=== PATIENT | male | born 1960 | race Caucasian/White ===

== ENCOUNTER 2017-01-04 19:42 | Observation (INO) | payer BC ==
[2017-01-04 19:44] VITALS: BP 192/104; PULSE 100; RESP 18; TEMP 99; O2SAT 97
[2017-01-04] MEDS ORDERED: SODIUM CHLORIDE 0.9% FLUSH 10 ML FLUSH IVF PRN (20:15)
[2017-01-04] MEDS ORDERED: ASPIRIN 81 MG CHEW TAB PO ONE (20:15)
[2017-01-04] MEDS ORDERED: SODIUM CHLOR 0.9% 1000 ML INJ 1,000 ML IV ONE (20:15)
[2017-01-04 20:16] VITALS: RESP 18; O2SAT 100
[2017-01-04] MEDS: NITROGLYCERIN 0.4 MG SL 25 TABS/BTL SL SCH ×3 (20:16→20:23)
[2017-01-04] MEDS ORDERED: ASPI81TA81 (20:19)
--- NOTE | 2017-01-04 20:23 | PD ---
HPI Chief Complaint: Chest Pain Time Seen by Provider: 19:49 Travel History International Travel<30 days: No Contact w/Intl Traveler<30days: No Traveled to known affect area: No History of Present Illness HPI Patient is a 56-year-old male with no known medical history, presents to emergency room for evaluation of chest pain. Patient reports that for the past few days, he has been feeling uncomfortable sensation to the left side of his chest. Patient reports that sometimes he feels the sensation go down his left leg or up his neck. Patient reports that he does feel short of breath with his symptoms. Patient reports that symptoms improved with ambulation, is worse with just sitting still. Reports concern as he is adopted and does not know his family history. Patient reports that the last time he saw a physician had his cholesterol checked was about 3 years ago in [place], reports that at that time he had a stress test by [facility] and reports that everything was negative. Patient is here for vacation, he lives in [place]. COUNT INCLUDES THE [facility] Past Medical History Medical History: Denies Significant Hx Past Surgical History Surgical History: No Previous Surgery Family History Family History: patient adopted Social History Alcohol Use: No Tobacco Use: No Substance Use: No Allergies-Medications (Allergen,Severity, Reaction): Coded Allergies: No Known Allergies (Unverified , 01/04/17) Reported Meds & Prescriptions Reported Meds & Active Scripts Active Reported Aspir-81 (Aspirin) 81 Mg Tabdr Review of Systems General / Constitutional: No: Fever Eyes: No: Visual changes HENT: No: Headaches Cardiovascular: Positive: Chest Pain or Discomfort Respiratory: Positive: Shortness of Breath Gastrointestinal: No: Abdominal Pain Genitourinary: No: Dysuria Musculoskeletal: No: Pain Skin: No Rash Neurologic: No: Weakness Psychiatric: No: Depression Endocrine: No: Polydipsia Hematologic/Lymphatic: No: Easy Bruising Physical Exam Narrative GENERAL: No acute distress, nontoxic SKIN: Focused skin assessment warm/dry. HEAD: Atraumatic. Normocephalic. EYES: Pupils equal and round. No scleral icterus. No injection or drainage. ENT: No nasal bleeding or discharge. Mucous membranes pink and moist. NECK: Trachea midline. No JVD. CARDIOVASCULAR: Regular rate and rhythm. No murmur appreciated. RESPIRATORY: No accessory muscle use. Clear to auscultation. Breath sounds equal bilaterally. GASTROINTESTINAL: Abdomen soft, non-tender, nondistended. Hepatic and splenic margins not palpable. MUSCULOSKELETAL: No obvious deformities. No clubbing. No cyanosis. No edema. NEUROLOGICAL: Awake and alert. No obvious cranial nerve deficits. Motor grossly within normal limits. Normal speech. PSYCHIATRIC: Appropriate mood and affect; insight and judgment normal. Data Data Last Documented VS Vital Signs Date Time Temp Pulse Resp B/P Pulse Ox O2 Delivery O2 Flow Rate FiO2 01/04/17 20:16 18 100 Nasal Cannula 01/04/17 19:44 99.0 100 192/104 Orders B-Type Natriuretic Peptide (01/04/17 20:04) Ckmb (Isoenzyme) Profile (01/04/17 20:04) Complete Blood Count With Diff (01/04/17 20:04) Comprehensive Metabolic Panel (01/04/17 20:04) D-Dimer (01/04/17 20:04) Magnesium (Mg) (01/04/17 20:04) Prothrombin Time / Inr (Pt) (01/04/17 20:04) Act Partial Throm Time (Ptt) (01/04/17 20:04) Troponin I (01/04/17 20:04) Lipase (01/04/17 20:04) Chest, Single Ap (01/04/17 20:04) Ecg Monitoring (01/04/17 20:04) Iv Access Insert/Monitor (01/04/17 20:04) Oximetry (01/04/17 20:04) Aspirin Chew (Aspirin Chew) (01/04/17 20:15) Sodium Chloride 0.9% Flush (Ns Flush) (01/04/17 20:15) Nitroglycerin Sl (Nitrostat Sl) (01/04/17 20:15) Sodium Chlor 0.9% 1000 Ml Inj (Ns 1000 M (01/04/17 20:15) CKMB (01/04/17 20:10) CKMB% (01/04/17 20:10) Electrocardiogram (01/04/17 19:58) Admit Order (Ed Use Only) (01/04/17 21:59) Labs Laboratory Tests Test 01/04/17 20:10 White Blood Count 8.8 TH/MM3 Red Blood Count 5.14 MIL/MM3 Hemoglobin 15.0 GM/DL Hematocrit 43.3 % Mean Corpuscular Volume 84.3 FL Mean Corpuscular Hemoglobin 29.2 PG Mean Corpuscular Hemoglobin 34.7 % Concent Red Cell Distribution Width 15.0 % Platelet Count 205 TH/MM3 Mean Platelet Volume 9.6 FL Neutrophils (%) (Auto) 58.5 % Lymphocytes (%) (Auto) 31.8 % Monocytes (%) (Auto) 7.9 % Eosinophils (%) (Auto) 1.4 % Basophils (%) (Auto) 0.4 % Neutrophils # (Auto) 5.1 TH/MM3 Lymphocytes # (Auto) 2.8 TH/MM3 Monocytes # (Auto) 0.7 TH/MM3 Eosinophils # (Auto) 0.1 TH/MM3 Basophils # (Auto) 0.0 TH/MM3 CBC Comment DIFF FINAL Differential Comment Prothrombin Time 10.1 SEC Prothromb Time International 0.9 RATIO Ratio Activated Partial 27.3 SEC Thromboplast Time D-Dimer Quantitative (PE/DVT) 0.32 MG/L FEU Sodium Level 138 MEQ/L Potassium Level 4.7 MEQ/L Chloride Level 108 MEQ/L Carbon Dioxide Level 23.6 MEQ/L Anion Gap 6 MEQ/L Blood Urea Nitrogen 12 MG/DL Creatinine 1.02 MG/DL Estimat Glomerular Filtration 76 ML/MIN Rate Random Glucose 77 MG/DL Calcium Level 9.0 MG/DL Magnesium Level 2.0 MG/DL Total Bilirubin 0.8 MG/DL Aspartate Amino Transf 82 U/L (AST/SGOT) Alanine Aminotransferase 64 U/L (ALT/SGPT) Alkaline Phosphatase 56 U/L Total Creatine Kinase 270 U/L Creatine Kinase MB 2.1 NG/ML Troponin I LESS THAN 0.02 NG/ML B-Type Natriuretic Peptide 7 PG/ML Total Protein 7.7 GM/DL Albumin 3.6 GM/DL Lipase 249 U/L [facility] Medical Decision Making Medical Screen Exam Complete: Yes Emergency Medical Condition: Yes Interpretation(s) EKG at 1957: Normal sinus rhythm at 95 bpm, qt/qtc: 335/388, no acute st or t wave changes Vital Signs Date Time Temp Pulse Resp B/P Pulse Ox O2 Delivery O2 Flow Rate FiO2 01/04/17 19:44 99.0 100 18 192/104 97 Room Air Differential Diagnosis ACS, arrhythmia, dissection, PE, electrolyte abnormality Narrative Course 56-year-old male who presents to emergency room with complaints of abnormal sensation to his chest wall. Symptoms have been intermittent for the past 3 days, reports concerns as he has been having radiation of symptoms of his neck and down his leg. Patient was placed on a quality assurance monitor chassis upon arrival to emergency room. EKG was obtained. Plan to obtain lab work including cardiac enzymes as well as x- ray of the chest. Will administer sublingual nitroglycerin to see if this helps this chest pain. Aspirin one 162 mg was administered as well. Vital Signs Date Time Temp Pulse Resp B/P Pulse Ox O2 Delivery O2 Flow Rate FiO2 01/04/17 20:16 18 100 Nasal Cannula 01/04/17 19:44 99.0 100 18 192/104 97 Room Air Laboratory Tests Test 01/04/17 20:10 White Blood Count 8.8 TH/MM3 (4.0-11.0) Red Blood Count 5.14 MIL/MM3 (4.50-5.90) Hemoglobin 15.0 GM/DL (13.0-17.0) Hematocrit 43.3 % (39.0-51.0) Mean Corpuscular Volume 84.3 FL (80.0-100.0) Mean Corpuscular Hemoglobin 29.2 PG (27.0-34.0) Mean Corpuscular Hemoglobin 34.7 % Concent (32.0-36.0) Red Cell Distribution Width 15.0 % (11.6-17.2) Platelet Count 205 TH/MM3 (150-450) Mean Platelet Volume 9.6 FL (7.0-11.0) Neutrophils (%) (Auto) 58.5 % (16.0-70.0) Lymphocytes (%) (Auto) 31.8 % (9.0-44.0) Monocytes (%) (Auto) 7.9 % (0.0-8.0) Eosinophils (%) (Auto) 1.4 % (0.0-4.0) Basophils (%) (Auto) 0.4 % (0.0-2.0) Neutrophils # (Auto) 5.1 TH/MM3 (1.8-7.7) Lymphocytes # (Auto) 2.8 TH/MM3 (1.0-4.8) Monocytes # (Auto) 0.7 TH/MM3 (0-0.9) Eosinophils # (Auto) 0.1 TH/MM3 (0-0.4) Basophils # (Auto) 0.0 TH/MM3 (0-0.2) CBC Comment DIFF FINAL Differential Comment Prothrombin Time 10.1 SEC (9.8-11.6) Prothromb Time International 0.9 RATIO Ratio Activated Partial 27.3 SEC Thromboplast Time (24.3-30.1) D-Dimer Quantitative (PE/DVT) 0.32 MG/L FEU (0.00-0.50) Sodium Level 138 MEQ/L (136-145) Potassium Level 4.7 MEQ/L (3.5-5.1) Chloride Level 108 MEQ/L (98-107) Carbon Dioxide Level 23.6 MEQ/L (21.0-32.0) Anion Gap 6 MEQ/L (5-15) Blood Urea Nitrogen 12 MG/DL (7-18) Creatinine 1.02 MG/DL (0.60-1.30) Estimat Glomerular Filtration 76 ML/MIN (>89) Rate Random Glucose 77 MG/DL (74-106) Calcium Level 9.0 MG/DL (8.5-10.1) Magnesium Level 2.0 MG/DL (1.5-2.5) Total Bilirubin 0.8 MG/DL (0.2-1.0) Aspartate Amino Transf 82 U/L (15-37) (AST/SGOT) Alanine Aminotransferase 64 U/L (12-78) (ALT/SGPT) Alkaline Phosphatase 56 U/L (45-117) Total Creatine Kinase 270 U/L (39-308) Creatine Kinase MB 2.1 NG/ML (0.5-3.6) Troponin I LESS THAN 0.02 NG/ML (0.02-0.05) B-Type Natriuretic Peptide 7 PG/ML (0-100) Total Protein 7.7 GM/DL (6.4-8.2) Albumin 3.6 GM/DL (3.4-5.0) Lipase 249 U/L (73-393) Last Impressions Chest X-Ray 01/04/172003 Signed Impressions: Service Date/Time: , January 04, 2017 20:19 - CONCLUSION: No acute disease. Mil Quarles MD Patient with relief of symptoms after 1 SL nitro. Plan to obs to chest pain unit at this time. Diagnosis Primary Impression: Chest pain Admitting Information Admitting Physician Requests: Observation Diane Arreguin DO Jan 04, 2017 20:23
[2017-01-04 20:32] LABS: AUTOMATED NEUTROPHIL # 5.1 TH/MM3 (1.8-7.7); BASOPHIL % 0.4 % (0.0-2.0); EOSINOPHIL # 0.1 TH/MM3 (0-0.4); EOSINOPHIL % 1.4 % (0.0-4.0); HEMATOCRIT 43.3 % (39.0-51.0); HEMO FLAGS DIFF FINAL; LYMPH % 31.8 % (9.0-44.0); LYMPHOCYTE # 2.8 TH/MM3 (1.0-4.8); MEAN CELL VOLUME 84.3 FL (80.0-100.0); MEAN CORPUSCULAR HEMOGLOBIN 29.2 PG (27.0-34.0); MEAN CORPUSCULAR HGB CONC 34.7 % (32.0-36.0); MONO % 7.9 % (0.0-8.0); NEUT % 58.5 % (16.0-70.0); PLATELET COUNT 205 TH/MM3 (150-450); RED BLOOD COUNT 5.14 MIL/MM3 (4.50-5.90); WHITE BLOOD COUNT 8.8 TH/MM3 (4.0-11.0)
[2017-01-04 20:46] LABS: ALT (GPT) 64 U/L (12-78)
[2017-01-04 20:47] LABS: APTT (PATIENT) 27.3 SEC (24.3-30.1); INTERNATIONAL NORMALIZED RATIO 0.9 RATIO; PROTHROMBIN TIME - PATIENT 10.1 SEC (9.8-11.6)
--- NOTE | 2017-01-04 20:48 | RADRPT ---
EXAM DATE/TIME: 01/04/2017 20:19 [place] COMPARISON: No previous studies available for comparison. INDICATIONS : Chest pain MEDICAL HISTORY : Hypertension. SURGICAL HISTORY : None. ENCOUNTER: Initial ACUITY: 1 day PAIN SCORE: 5/10 LOCATION: Bilateral chest FINDINGS: A single view of the chest demonstrates the lungs to be symmetrically aerated without evidence of mas s, infiltrate or effusion. The cardiomediastinal contours are unremarkable. Osseous structures are intact. There are overlying electrocardiogram leads. CONCLUSION: No acute disease. Mil Quarles MD on January 04, 2017 at 20:46 Board Certified Radiologist. This report was verified electronically.
[2017-01-04 20:54] LABS: ALKALINE PHOSPHATASE 56 U/L (45-117); ANION GAP 6 MEQ/L (5-15); AST (GOT) 82 U/L (15-37); BICARBONATE 23.6 MEQ/L (21.0-32.0); BLOOD UREA NITROGEN 12 MG/DL (7-18); CHLORIDE 108 MEQ/L (98-107); CREATINE KINASE 270 U/L (39-308); GLOMERULAR FILTRATION RATE 76 ML/MIN (>89); SODIUM (NA) 138 MEQ/L (136-145); TOTAL BILIRUBIN ADULT 0.8 MG/DL (0.2-1.0)
[2017-01-04 20:56] LABS: POTASSIUM 4.7 MEQ/L (3.5-5.1)
[2017-01-04 21:09] LABS: CKMB 2.1 NG/ML (0.5-3.6)
[2017-01-04 22:57] VITALS: BP 150/70; PULSE 74; RESP 18; O2SAT 98
[2017-01-04 23:47] LABS: CREATINE KINASE 175 U/L (39-308)
[2017-01-04 23:59] LABS: CKMB 1.6 NG/ML (0.5-3.6)
[2017-01-05] VITALS (8 sets, daily range): BP systolic 140–160; BP diastolic 79–94; PULSE 72–98; RESP 17–21; TEMP 96.7–97.8; O2SAT 97–99
[2017-01-05 04:48] LABS: CREATINE KINASE 156 U/L (39-308)
[2017-01-05 05:01] LABS: CKMB 1.4 NG/ML (0.5-3.6)
--- NOTE | 2017-01-05 05:02 | EKG ---
Date Performed: 01/04/2017 Time Performed: 19:58:10 PTAGE: 56 years EKG: Sinus rhythm NORMAL ECG NO PREVIOUS TRACING DOCTOR: Dimitri Redding Interpretating Date/Time 01/05/2017 04:59:43
--- NOTE | 2017-01-05 08:31 | EKG ---
Date Performed: 01/05/2017 Time Performed: 02:48:31 PTAGE: 56 years EKG: Sinus rhythm NORMAL ECG NO SIGNIFICANT CHANGE FROM PRIOR ELECTROCARDIOGRAM. PREVIOUS TRACING : 01/04/2017 23.41 DOCTOR: Dimitri Redding Interpretating Date/Time 01/05/2017 08:29:34
--- NOTE | 2017-01-05 11:23 | HHI.HP ---
HPI Primary Care Physician No Primary Care Physician Chief Complaint Awkward feeling History of Present Illness This is a 56-year-old male that presents to the ED via private vehicle complaining of an awkward feeling. This was not necessarily in the chest but he found that when he would, size left chest that it would feel better. Denies having any chest discomfort. He talked his about this and decided to go for walk yesterday when it occurred and states that it felt better when he was walking. He had no associated shortness breath, nausea, or diaphoresis. The symptoms lasted about an hour. He states he had summing similar to 3 years ago and had a workup in [place] for this. He states he had normal stress test. He is here on vacation from [place]. Denies recent illnesses. Denies fevers or chills. Review of Systems General: Patient denies fevers, chills recent, and recent travel HEENT: Patient denies headache, sore throat, difficulty swallowing. Cardiovascular: Denies chest discomfort as mentioned above. Complains of an awkward sensation. Denies sensation of heart beating rapidly or irregularly. No syncope. Respiratory: Denies shortness of breath or inspirational chest discomfort. Denies coughing wheezing or hemoptysis. GI: Patient denies nausea, vomiting, diarrhea, abdominal pain, bloody stools. Musculoskeletal: Patient denies joint pain or edema. Denies calf pain or edema. Neurovascular: Patient denies numbness, tingling, weakness in extremities. Denies headache. Endocrine: Denies polyuria and polydipsia. Hematologic: Denies easy bruising. Skin: Denies rash or itching. Past Family Social History Allergies: Coded Allergies: No Known Allergies (Unverified , 01/04/17) Past Medical History Denies hypertension, hyperlipidemia, diabetes, and known CAD. Past Surgical History Noncontributory. Reported Medications Reported Meds & Active Scripts Active Reported Aspir-81 (Aspirin) 81 Mg Tabdr Active Ordered Medications Current Medications Medications (Trade) Dose Ordered Sig/Lilian Route Start Time Stop Time Status Last Admin (NS Flush) 2 ml UNSCH PRN IVF 01/04/17 20:15 Family History He states that he is unaware of his family medical history as he is adopted. Social History Patient denies tobacco abuse. Denies alcohol or illicit drug use. Physical Exam Vital Signs Vital Signs Date Time Temp Pulse Resp B/P Pulse Ox O2 Delivery O2 Flow Rate FiO2 01/05/17 08:01 98 01/05/17 08:00 72 01/05/17 07:35 96.7 78 17 159/94 98 01/05/17 05:44 97.8 80 18 144/94 98 01/05/17 04:00 74 01/05/17 01:34 77 01/05/17 00:25 97.8 80 21 160/79 99 01/04/17 22:57 74 18 150/70 98 01/04/17 20:16 18 100 Nasal Cannula 01/04/17 19:44 99.0 100 18 192/104 97 Room Air Physical Exam GENERAL: This is a well-nourished, well-developed patient, in no apparent distress. Patient speaks in clear complete sentences. Patient is pleasant. HEENT: Head is atraumatic and normocephalic. Neck is supple without lymphadenopathy and trachea is midline. No JVD or carotid bruits. CARDIOVASCULAR: Regular rate and rhythm without murmurs, gallops, or rubs. RESPIRATORY: Clear to auscultation. Breath sounds equal bilaterally. No wheezes , rales, or rhonchi. Chest wall is nontender. No use of accessory muscles. GASTROINTESTINAL: Abdomen is nontender, nondistended. Abdomen soft. No obvious pulsatile mass or bruit. No CVA tenderness. Strong femoral pulses bilaterally. Normal bowel sounds in all quadrants. MUSCULOSKELETAL: Patient is moving upper and lower extremities freely. No calf tenderness or edema, no Homans sign. Strong pulses in upper and lower extremities. NEUROLOGICAL: Patient is alert and oriented. Cranial nerves 2-12 are grossly intact. No focal deficits and speech is clear. SKIN: No rash and turgor is normal. Laboratory Laboratory Tests Test 01/04/17 01/04/17 01/05/17 20:10 22:59 03:53 White Blood Count 8.8 Red Blood Count 5.14 Hemoglobin 15.0 Hematocrit 43.3 Mean Corpuscular Volume 84.3 Mean Corpuscular Hemoglobin 29.2 Mean Corpuscular Hemoglobin 34.7 Concent Red Cell Distribution Width 15.0 Platelet Count 205 Mean Platelet Volume 9.6 Neutrophils (%) (Auto) 58.5 Lymphocytes (%) (Auto) 31.8 Monocytes (%) (Auto) 7.9 Eosinophils (%) (Auto) 1.4 Basophils (%) (Auto) 0.4 Neutrophils # (Auto) 5.1 Lymphocytes # (Auto) 2.8 Monocytes # (Auto) 0.7 Eosinophils # (Auto) 0.1 Basophils # (Auto) 0.0 CBC Comment DIFF FINAL Differential Comment Prothrombin Time 10.1 Prothromb Time International 0.9 Ratio Activated Partial 27.3 Thromboplast Time D-Dimer Quantitative (PE/DVT) 0.32 Sodium Level 138 Potassium Level 4.7 Chloride Level 108 Carbon Dioxide Level 23.6 Anion Gap 6 Blood Urea Nitrogen 12 Creatinine 1.02 Estimat Glomerular Filtration 76 Rate Random Glucose 77 Calcium Level 9.0 Magnesium Level 2.0 Total Bilirubin 0.8 Aspartate Amino Transf 82 (AST/SGOT) Alanine Aminotransferase 64 (ALT/SGPT) Alkaline Phosphatase 56 Total Creatine Kinase 270 175 156 Creatine Kinase MB 2.1 1.6 1.4 Troponin I LESS THAN 0.02 LESS THAN 0.02 LESS THAN 0.02 B-Type Natriuretic Peptide 7 Total Protein 7.7 Albumin 3.6 Lipase 249 Result Diagram: 01/04/17200901/04/172009 Imaging Last 48 hours Impressions Chest X-Ray 01/04/172003 Signed Impressions: Service Date/Time: December 20:19 - CONCLUSION: No acute disease. Mil Quarles MD Course EKGs have sinus rhythm without significant ST segment depressions or elevations. Assessment and Plan Assessment and Plan * Atypical chest pain: Patient denies having chest discomforts but complains of an awkward sensation. He had normal serial cardiac enzymes. He has been seen by Dr. Nigel Carvajal of cardiology in the chest pain center and will undergo a Juanjo protocol ETT. He'll be discharged home if the stress test is nonischemic. He should follow-up with his primary care physician when returning to [place] after next week. Return to ED for interval issues. Patient is stable time. He is agreeable to this plan. Daron Doty Jan 05, 2017 11:23
--- NOTE | 2017-01-05 11:29 | HHI.DCPOC ---
Discharge Care Plan Diagnosis: (1) Chest pain Goals to Promote Your Health * To prevent worsening of your condition and complications * To maintain your health at the optimal level Directions to Meet Your Goals Take your medications as prescribed Follow your dietary instruction Follow activity as directed Keep your appointments as scheduled Take your immunizations and boosters as scheduled If your symptoms worsen call your PCP, if no PCP go to Urgent Care Center or Emergency Room Smoking is Dangerous to Your Health. Avoid second hand smoke Call the 24-hour hour crisis hotline for domestic abuse at Daron Doty Jan 05, 2017 11:29
--- NOTE | 2017-01-05 11:34 | EKG ---
Date Performed: 01/04/2017 Time Performed: 23:41:03 PTAGE: 56 years EKG: Sinus rhythm NORMAL ECG COMPARED TO PRIOR ELECTROCARDIOGRAM, [place] has rotated leftward. PREVIOUS TRACING : 01/04/2017 19.58 DOCTOR: Dimitri Redding Interpretating Date/Time 01/05/2017 11:33:21
--- NOTE | 2017-01-05 15:28 | TR ---
Date Performed: 01/05/2017 Time Performed: 10:41:40 DOCTOR: Nigel Carvajal DRUG LIST: CLINICAL HISTORY: REASON FOR TEST: REASON FOR ENDING: OBSERVATION: CONCLUSION: Patient exercised using the Juanjo protocol. No electrocardiographic changes were see n to suggest ischemia. Hemodynamic response to exercise was normal. No significant arrhythmia was pre sent. COMMENTS:
== END 2017-01-05 12:37 | disposition home or self-care (01) ==
LOC: NEPE 19:42 → NEDA 22:00 → NEPFCDU 23:11
PROVIDERS: ADMIT Internal Medicine Cardiovascular Disease; ATTEND Internal Medicine Cardiovascular Disease
DX: R07.89 Other chest pain (principal); I10 Essential (primary) hypertension; Z79.82 Long term (current) use of aspirin
CPT/HCPCS: 71010; 80053; 82550; 82552; 83690; 83735; 83880; 84484; 85025; 85379; 85610; 85730; 93005; 93017; 96360; 99285; G0378; J7030